=== PATIENT | male | born 1995 | race Caucasian/White ===

== ENCOUNTER 2019-12-28 14:31 | Emergency (ER) | payer BC ==
[2019-12-28] MEDS ORDERED: Acetaminophen/oxyCODONE 325-5 MG Tab PO STA (14:53)
[2019-12-28] MEDS ORDERED: Bacitracin Oint 1 GM U/D Packet TOP ONE (14:54)
[2019-12-28] MEDS ORDERED: Lidocaine 2% Viscous Solution 100 ML Bottle ONE (14:54)
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
[2019-12-28] MEDS ORDERED: Lidocaine 2% Viscous Solution 15 ML Cup ONE (15:05)
[2019-12-28] MEDS ORDERED: Lidocaine 2% Viscous Solution 15 ML Cup PO ONE (15:08)
--- NOTE | 2019-12-30 09:32 | CR ---
Clavicle Lt CLINICAL HISTORY: Injury FINDINGS: There is a displaced fracture of the mid clavicle. The AC joint is unremarkable. IMPRESSION: Displaced fracture mid left clavicle
== END 2019-12-28 16:00 | disposition home or self-care (01) ==
LOC: JP.ED 14:31
DX: S42.022A Displaced fracture of shaft of left clavicle, initial encounter for closed fracture (principal); S50.312A Abrasion of left elbow, initial encounter; S80.212A Abrasion, left knee, initial encounter; V18.4XXA Pedal cycle driver injured in noncollision transport accident in traffic accident, initial encounter
CPT/HCPCS: 73000; 99283; A9270